=== PATIENT | female | born 2000 | race Caucasian/White ===

== ENCOUNTER 2020-10-01 20:56 | Emergency (ER) | payer OTHER ==
[~2020-10-01 20:56] MED LIST: NORCO 7.5-3251 EACH PO
[2020-10-01 21:44] LABS: BILIRUBIN NEGATIVE (NEGATIVE); BLOOD NEGATIVE Ery/uL (NEGATIVE); CLARITY CLEAR (CLEAR); COLOR YELLOW (YELLOW); GLUCOSE (U) NORMAL (NORMAL); LEUKOCYTES NEGATIVE Leu/uL (NEGATIVE); NITRITE NEGATIVE (NEGATIVE); PROTEIN NEGATIVE (NEGATIVE); SPECIFIC GRAVITY >=1.030 (1.001-1.030); UROBILINOGEN 0.2 mg/dL (0.2-1.0); pH 5.5 (5.0-9.0)
[2020-10-01 22:09] LABS: BASOPHIL 0.1 % (0-2); EOSINOPHIL 0.3 % (0-5); HCT 38.3 % (37.0-47.0); HGB 12.7 g/dl (12.5-16.0); LYMPHOCYTE 32.9 % (15-48); MCH 28.5 pg (25.0-31.0); MCHC 33.2 g/dL (32.0-36.0); MCV 86.1 fL (78.0-100.0); MPV 10.1 fL (6.0-9.5); NEUTROPHIL 57.4 % (41-80); NRBC 0; PLT 203 K/uL (150-400); RBC 4.45 M/uL (4.20-5.40); RDW 13.2 % (11.5-14.0); WBC 7.4 K/uL (4.0-10.5)
[2020-10-01 22:21] LABS: ALBUMIN 3.3 g/dL (3.4-5.0); BILIRUBIN - TOTAL 0.2 mg/dL (0.2-1.0); BUN/CREAT RATIO (CALC) 19.6 RATIO; CREATININE 0.51 mg/dL (0.51-0.95); POTASSIUM 3.4 mmol/L (3.5-5.1); TOTAL PROTEIN 7.3 g/dL (6.4-8.2)
== END 2020-10-01 22:55 | disposition home or self-care (01) ==
LOC: FER 20:56
PROVIDERS: Emergency Medicine
DX: O99.891 Other specified diseases and conditions complicating pregnancy (principal); R10.9 Unspecified abdominal pain; Z3A.17 17 weeks gestation of pregnancy
CPT/HCPCS: 36415; 80053; 81003; 85025; 99284; J7120

== ENCOUNTER 2021-02-08 18:23 | Day surgery (SDCO) | payer OTHER ==
[2021-02-08 19:50] LABS: BILIRUBIN NEGATIVE (NEGATIVE); BLOOD NEGATIVE Ery/uL (NEGATIVE); CLARITY CLEAR (CLEAR); COLOR YELLOW (YELLOW); GLUCOSE (U) NORMAL (NORMAL); LEUKOCYTES NEGATIVE Leu/uL (NEGATIVE); NITRITE NEGATIVE (NEGATIVE); PROTEIN NEGATIVE (NEGATIVE); UROBILINOGEN 0.2 mg/dL (0.2-1.0); pH 6.5 (5.0-9.0)
== END 2021-02-08 20:41 | disposition home or self-care (01) ==
LOC: FOB 18:23
PROVIDERS: ADMIT Obstetrics & Gynecology
DX: O47.03 False labor before 37 completed weeks of gestation, third trimester (principal); O99.891 Other specified diseases and conditions complicating pregnancy; M19.90 Unspecified osteoarthritis, unspecified site; O99.013 Anemia complicating pregnancy, third trimester; D64.9 Anemia, unspecified; O99.343 Other mental disorders complicating pregnancy, third trimester; F41.9 Anxiety disorder, unspecified; F32.9 Major depressive disorder, single episode, unspecified; O99.213 Obesity complicating pregnancy, third trimester; E66.9 Obesity, unspecified; Z86.16 Personal history of COVID-19; Z3A.35 35 weeks gestation of pregnancy
CPT/HCPCS: 81003; 84112; G0378

== ENCOUNTER 2021-03-01 02:02 | Inpatient (IN) | payer OTHER ==
[2021-03-01 02:52] LABS: AMPHETAMINES NEGATIVE (NEGATIVE); BARBITURATES NEGATIVE (NEGATIVE); ECSTASY (MDMA) NEGATIVE (NEGATIVE); MARIJUANA (THC) NEGATIVE (NEGATIVE); METHADONE NEGATIVE (NEGATIVE); OPIATES NEGATIVE (NEGATIVE); OXYCODONE NEGATIVE (NEGATIVE)
[2021-03-01 02:52] LABS: BILIRUBIN NEGATIVE (NEGATIVE); BLOOD NEGATIVE Ery/uL (NEGATIVE); CLARITY CLEAR (CLEAR); COLOR YELLOW (YELLOW); GLUCOSE (U) NORMAL (NORMAL); LEUKOCYTES NEGATIVE Leu/uL (NEGATIVE); NITRITE NEGATIVE (NEGATIVE); PROTEIN NEGATIVE (NEGATIVE); UROBILINOGEN 0.2 mg/dL (0.2-1.0)
[2021-03-01 03:52] LABS: HCT 33.3 % (37.0-47.0); HGB 10.2 g/dl (12.5-16.0); MCH 24.3 pg (25.0-31.0); MCHC 30.6 g/dL (32.0-36.0); MCV 79.5 fL (78.0-100.0); RBC 4.19 M/uL (4.20-5.40); WBC 10.2 K/uL (4.0-10.5)
[2021-03-02 14:46] LABS: HCT 27.2 % (37.0-47.0); HGB 8.2 g/dl (12.5-16.0); MCH 24.6 pg (25.0-31.0); MCHC 30.1 g/dL (32.0-36.0); MCV 81.4 fL (78.0-100.0); MPV 10.5 fL (6.0-9.5); RBC 3.34 M/uL (4.20-5.40); WBC 11.8 K/uL (4.0-10.5)
[2021-03-03] MEDS ORDERED: COLACE100 MG PO (14:04)
[2021-03-03] MEDS ORDERED: MOTRIN600 MG PO (14:04)
[2021-03-03] MEDS ORDERED: PRENATAL FORMU1 EACH PO (14:04)
[2021-03-03] MEDS ORDERED: FEOSOL325 MG PO (14:04)
== END 2021-03-03 18:05 | disposition home or self-care (01) | DRG 787 ==
LOC: FOB 02:02 → FOD 02:02 → FOB 03:41
PROVIDERS: Obstetrics & Gynecology; ADMIT Obstetrics & Gynecology
PROC: 3E033VJ Introduction of Other Hormone into Peripheral Vein, Percutaneous Approach (ICD-10-PCS; 2021-03-02)
PROC: 10H07YZ Insertion of Other Device into Products of Conception, Via Natural or Artificial Opening (ICD-10-PCS; 2021-03-02)
PROC: 10D00Z1 Extraction of Products of Conception, Low, Open Approach (ICD-10-PCS; principal; 2021-03-02 00:12)
DX: O62.2 Other uterine inertia (principal); O98.52 Other viral diseases complicating childbirth; D62 Acute posthemorrhagic anemia; O42.02 Full-term premature rupture of membranes, onset of labor within 24 hours of rupture; Z37.0 Single live birth; Z3A.38 38 weeks gestation of pregnancy; B00.9 Herpesviral infection, unspecified; Z20.822 Contact with and (suspected) exposure to COVID-19; O99.02 Anemia complicating childbirth; O99.344 Other mental disorders complicating childbirth; F41.9 Anxiety disorder, unspecified; Z86.16 Personal history of COVID-19; Z79.82 Long term (current) use of aspirin; Z79.899 Other long term (current) drug therapy; Z90.89 Acquired absence of other organs; Z98.890 Other specified postprocedural states
CPT/HCPCS: 36415; 80305; 81003; 84112; J0456; J0595; J0690; J1885; J2250; J2274; J2370; J2405; J2540; J2704; J2916; J7050; J7120; U0002